=== PATIENT | female | born 2000 | race Two or more races ===

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

== ENCOUNTER 2024-09-05 11:07 | Emergency (ER) | payer MEDICAID ==
[~2024-09-05] VITALS: Ht 160 cm; Wt 100.0 kg
[~2024-09-05 11:07] MED LIST: MIRT-93 PO; OLAN20TA PO
[2024-09-05 12:05] VITALS: BP 117/53; PULSE 91; RESP 22; TEMP 97.4; O2SAT 97
--- NOTE | 2024-09-05 12:40 | ED.PDOC ---
HPI Comments 23 YEAR OLD FEMALE PRESENTS TO THE ED WITH CHIEF COMPLAINT OF LACERATION. PATIENT REPORTS THAT SHE HAD BEEN CARRYING A WOODEN CUTTING BOARD AT HOME WHEN SHE ACCIDENTALLY DROPPED IT ONTO HER LEFT GREAT TOE THIS MORNING. PATIENT RELAYS THAT SHE NOW HAS A LACERATION WITH NAIL INJURY TO HER LEFT GREAT TOE, CONTROLLING THE BLEEDING BEFORE COMING TO THE ED. PATIENT DENIES ANY NUMBNESS, WEAKNESS, OR FURTHER INJURY. Chief Complaint: Laceration Time Seen by MD: 12:34 Reviewed Notes: Nurses Notes, Medications, Allergies Allergies: Coded Allergies: NO KNOWN ALLERGIES (Unverified , 08/14/21) Home Meds Active Scripts Acetaminophen (Tylenol Extra Strength Fo) 500 Mg Tab, 1000 MG PO BID, #30 TAB Prov:HANNAH WIGGINS 09/05/24 Cephalexin Monohydrate (Cephalexin) 500 Mg Cap, 1 CAP PO QID, #40 CAP Prov:HANNAH WIGGINS 09/05/24 Mirtazapine (Remeron) 15 Mg Tab, 15 MG PO DAILY for 10 Days, #10 TAB Prov:JAYLA ESTRADA MD 08/17/21 Olanzapine (Zyprexa) 20 Mg Tab, 2.5 MG PO DAILY for 10 Days, #10 TAB Prov:JAYLA ESTRADA MD 08/17/21 Information Source: Patient Mode of Arrival: EMS Severity: Moderate Severity of Laceration: Controlled Bleeding Complexity: Intermediate Timing: Hours Prehospital treatment: None Laceration Location: Digit #1 (LT GREAT TOE) Mechanism: Wood Last Tetanus: UTD Laceration Length (cm): 4 Skin Type: Linear Depth of Injury: SQ, Nail Tendon Injury: 0% Capillary Refill: < 3 seconds Tender: Moderate Discharge: Serosanguinous Erythema: Localized to Wound Edges Associated Signs and Symptoms: None Past Medical History PAST MEDICAL HISTORY: Anxiety, Depression Surgical History: Denies all surgeries SOFTWARE DESIGN ENGINEER History: No Pertinent SOFTWARE DESIGN ENGINEER History Family History Family History: Unknown Social History Smoker: Non-Smoker Alcohol: Denies ETOH Use Drugs: Denies Drug Use Lives In: Home Constitutional: denies: chills, diaphoresis, fatigue, fever, malaise, sweats, weakness, others EENTM: denies: blurred vision, double vision, ear bleeding, ear discharge, ear drainage, ear pain, ear ringing, eye pain, eye redness, hearing loss, mouth pain, mouth swelling, nasal discharge, nose bleeding, nose congestion, nose pain, photophobia, tearing, throat pain, throat swelling, voice changes, others Respiratory: denies: cough, hemoptysis, orthopnea, SOB at rest, shortness of breath, SOB with excertion, stridor, wheezing, others Cardiovascular: denies: chest pain, dizzy spells, diaphoresis, Dyspnea on exertion, edema, irregular heart beat, left arm pain, lightheadedness, palpitations, PND, syncope, others Gastrointestinal: denies: abdomen distended, abdominal pain, blood streaked bowels, constipated, diarrhea, dysphagia, difficulty swallowing, hematemesis, melena, nausea, poor appetite, poor fluid intake, rectal bleeding, rectal pain, vomiting, others Genitourinary: reports: ; denies: abnormal vagina bleeding, burning, dyspareunia, dysuria, flank pain, frequency, hematuria, incontinence, pain, vagina discharge, urgency, others Neurological: denies: dizziness, fainting, headache, left sided numbness, left sided weakness, numbness, paresthesia, pre-existing deficit, right sided numbness, right sided weakness, seizure, speech problems, tingling, tremors, weakness, others Musculoskeletal: reports: joint pain; denies: back pain, gout, joint swelling, muscle pain, muscle stiffness, neck pain, others Integumetry: reports: laceration (TO LT GREAT TOE WITH NAIL INJURY); denies: bruises, change in color, change in hair/nails, dryness, lesions, lumps, rash, wounds, others Allergic/Immunocompromised: denies: Difficulty Healing, Frequent Infections, Hives, Itching, others Hematologic/Lymphatic: denies: anemia, blood clots, easy bleeding, easy bruising, swollen glands, others Endocrine: denies: excessive hunger, excessive sweating, excessive thirst, excessive urination, flushing, intolerance to cold, intolerance to heat, unexplained weight gain, unexplained weight loss, others Psychiatric: denies: anxiety, bipolar disorder, depression, hopeless, panic disorder, schizophrenia, sleepless, suicidal, others All Other Systems: Reviewed and Negative Physical Exam General Appearance: No Apparent Distress, Obese HEENT: Normal ENT Inspection, PERRL/EOMI Neck: Full Range of Motion, Non-Tender, Normal, Normal Inspection Respiratory: Chest Non-Tender, Lungs Clear, No Accessory Muscle Use, No Respiratory Distress, Normal Breath Sounds Cardiovascular: No Edema, No JVD, No Murmur, No Gallop, Normal Peripheral Pulses, Regular Rate/Rhythm Breast Exam: Deferred Gastrointestinal: No Organomegaly, Non Tender, No Pulsatile Mass, Normal Bowel Sounds, Soft Genitalia: Deferred Pelvic: Deferred Rectal: Deferred Extremities: No calf tenderness, Normal capillary refill, Normal range of motion, No pedal edema, Tender (BONY TENDERNESS WITH LACERATION ON LEFT GREAT TOE, NO DEFORMITY. ) Musculoskeletal : Apperance: Normal Neurologic: Alert, fruit receiver II-XII nml as Tested, No Motor Deficits, Normal Affect, Normal Mood, No Sensory Deficits Cerebellar Function: Normal Reflexes: Normal Skin: Dry, Lacerations (4CM LACERATION ON LEFT GREAT TOE, NO BLEEDING AND FB, NEUROVASCULAR INTACT. ), Normal Color, Warm Peripheral Pulses: 2+ carotid (R), 2+ carotid (L), 2+ dorsalis pedis (R), 2+ dorsalis pedis (L) Lymphatic: No Adenopathy Was a procedure done? Was a procedure done?: Yes Sedation Sedation?: No Laceration Repair : Location LT GREAT TOE Length 3 CM Anesthetic: Lidocaine, Without epi Laceration Repair Prep: Saline Laceration Repair Wound Comple: subcut tissue repair (WITH HALF NAIL INJURY) Laceration Repair: Number of sutures (6, 4-0 ETHILON SUTURES), SQ, Size (3- 0), Simple, Bacitracin, Gauze Informed consent obtained: No Risks, benefits, and alternati: Yes Images 1 - Differential diagnosis Generic Laceration: Fracture, Abrasion/Contusion, Laceration X-Ray, Labs, Meds, VS Vital Signs Date Time Temp Pulse Resp B/P (MAP) Pulse Ox O2 Delivery O2 Flow Rate FiO2 09/05/24 12:05 97.4 91 22 117/53 (74) 97 97.4 09/05/24 12:05 91 22 97 Room Air 09/05/24 11:30 98.0 95 24 118/74 (89) 95 98.0 Current Medications Medications (Trade) Dose Ordered Sig/Jose E Route Start Time Stop Time Status Last Admin Ceftriaxone Sodium (Rocephin) 1,000 mg ONCE ONCE IM 09/05/24 13:00 09/05/24 13:01 DC 09/05/24 13:02 Acetaminophen (Tylenol Tablet Or Capsule) 1,000 mg ONCE ONCE PO 09/05/24 13:00 09/05/24 13:01 DC 09/05/24 13:02 LEFT FOOT XR: FINDINGS/IMPRESSION: Nondisplaced fracture involving the distal phalanx of the 1st digit. X-Ray, Labs, Meds, VS Comment EXTERNAL MEDICAL RECORDS REVIEWED: [NONE] INDEPENDENT HISTORIANS: [NONE] SOCIAL DETERMINANTS OF HEALTH: [NONE] LABS ORDERED: NONE REVIEWED AND INTERPRETED RESULTS: LEFT FOOT XR IMAGING ORDERED: LEFT FOOT XR TREATMENTS ORDERED: LACERATION REPAIR AND WRAPPING OF LEFT GREAT TOE, ROCEPHIN 1G IM, TYLENOL 1G PO PROCEDURES PERFORMED: NONE CRITICAL CARE TIME: NONE I HAVE DISCUSSED THE PATIENT WITH THE ATTENDING PHYSICIAN DR. KAMARA] AND HE AGREES WITH THE PATIENT'S PLAN OF CARE AND DISPOSITION. BASED ON HISTORY OF PRESENT ILLNESS, AND PHYSICAL EXAM, PATIENT WILL BE DISCHARGED HOME. DISCUSSED PLAN FOR DISCHARGE HOME WITH RX KEFLEX AND TYLENOL. MEDICATION WARNINGS GIVEN. SHARED DECISION MAKING: DISCUSSED WITH PATIENT THAT THEIR WORKUP WAS NORMAL. PATIENT INSTRUCTED TO FOLLOW UP WITH PRIMARY CARE PROVIDER IN 1-2 DAYS FOR RE- EVALUATION OF SYMPTOMS. PATIENT VERBALIZES UNDERSTANDING TO RETURN TO ED FOR NEW OR WORSENING SYMPTOMS OR IF FOLLOW UP WITH PCP CANNOT BE OBTAINED. PATIENT FEELS COMFORTABLE GOING HOME AT THIS TIME. ALL QUESTIONS ADDRESSED AT TIME OF DISCHARGE. Time of 1ST Reevaluation: : Reevaluation 1ST: Improved Patient Education/Counseling: Diagnosis, Treatment, Need For Follow Up Family Education/Counseling: Diagnosis, Treatment, No Family Present Medical Screening: No EMC Exist At This Time Departure 1 Departure Time of Disposition: 13:26 Impression: Primary Impression: Laceration of left great toe with damage to nail Qualified Codes: S91.212A - Laceration without foreign body of left great toe with damage to nail, initial encounter Additional Impression: Nondisplaced fracture of phalanx of left great toe Qualified Codes: S92.425A - Nondisplaced fracture of distal phalanx of left great toe, initial encounter for closed fracture Disposition: HOME / SELF CARE / HOMELESS Condition: Stable Additional Instructions: FOLLOW-UP WITH PCP IN 1 TO 2 DAYS. TAKE MEDICATIONS PRESCRIBED. RETURN TO ED FOR ANY NEW OR WORSENING SYMPTOMS. e-Prescriptions Acetaminophen (Tylenol Extra Strength Fo) 500 Mg Tab 1000 MG PO BID, #30 TAB Prov: HANNAH WIGGINS 09/05/24 Cephalexin Monohydrate (Cephalexin) 500 Mg Cap 1 CAP PO QID, #40 CAP Prov: HANNAH WIGGINS 09/05/24 Discharged With: Self Critical Care Note Critical Care Time?: No Stability Stability form required: No Heart Score Heart Score: Heart Score Response (Comments) Value History N/A 0 EKG N/A 0 Age N/A 0 Risk Factors N/A 0 Troponin N/A 0 Total 0 I personally scribed for HANNAH WIGGINS ([email or web address]) on 09/05/24 at 12:40. Electronically submitted by Joselo Herrera ([email or web address]). I personally scribed for HANNAH WIGGINS ([email or web address]) on 09/05/24 at 12:48. Electronically submitted by Joselo Herrera ([email or web address]). I personally scribed for HANNAH WIGGINS ([email or web address]) on 09/05/24 at 12:49. Electronically submitted by Joselo Herrera ([email or web address]). I personally scribed for HANNAH WIGGINS ([email or web address]) on 09/05/24 at 13:20. Electronically submitted by Joselo Herrera ([email or web address]). HANNAH WIGGINS Sep 05, 2024 12:40
[2024-09-05] MEDS: LIDOCAINE 1% HCL (LOCAL ANESTH.) INJ 20ML MDV ONE (13:02)
[2024-09-05] MEDS: ACETAMINOPHEN 500 MG TAB or CAP PO ONE (13:02)
[2024-09-05] MEDS: cefTRIAXone SOD 1,000 MG VL IM ONE (13:02)
--- NOTE | 2024-09-05 13:11 | DVH ---
EXAM: XY L FOOT 2 VIEW XRAY CLINICAL INDICATION: LEFT GREAT TOE LACERATION TECHNIQUE: XY L FOOT 2 VIEW XRAY Comparison: None FINDINGS/IMPRESSION: Nondisplaced fracture involving the distal phalanx of the 1st digit.
[2024-09-05] MEDS ORDERED: CEPH500C PO (13:12)
[2024-09-05] MEDS ORDERED: ACET-1304 PO (13:12)
== END 2024-09-05 13:17 | disposition home or self-care (01) ==
LOC: ER 11:07 → EDBD 11:07 → ER 13:17
DX: S92.425A Nondisplaced fracture of distal phalanx of left great toe, initial encounter for closed fracture (principal); S91.212A Laceration without foreign body of left great toe with damage to nail, initial encounter; F41.9 Anxiety disorder, unspecified; F32.9 Major depressive disorder, single episode, unspecified; Z79.899 Other long term (current) drug therapy; W04.XXXA Fall while being carried or supported by other persons, initial encounter; Y93.89 Activity, other specified; Y92.89 Other specified places as the place of occurrence of the external cause; Y99.8 Other external cause status
CPT/HCPCS: 12002; 73620; 96372; 99283; J0696; J2003

== ENCOUNTER 2024-09-05 11:19 | Emergency (ER) | payer MEDICAID ==
[~2024-09-05] VITALS: Ht 160 cm; Wt 100.0 kg
[2024-09-05 11:44] VITALS: BP 117/53; PULSE 91; RESP 22; TEMP 97.4; O2SAT 97
[2024-09-05] MEDS ORDERED: ACET-1304 PO (13:12)
[2024-09-05] MEDS ORDERED: CEPH500C PO (13:12)
== END 2024-09-05 12:17 | disposition left against medical advice (07) ==
LOC: ER 11:23
DX: S99.922A Unspecified injury of left foot, initial encounter (principal); Z53.21 Procedure and treatment not carried out due to patient leaving prior to being seen by health care provider

== ENCOUNTER 2024-09-17 22:01 | Observation (INO) | payer OTHER ==
[~2024-09-17] VITALS: Ht 160 cm; Wt 98.0 kg
[~2024-09-17 22:01] MED LIST changes: +ACET-1304 PO; +CEPH500C PO
[2024-09-17 22:53] LABS: Urine Bacteria None Seen /hpf (None Seen)
[2024-09-17] MEDS: TERBUTALINE SULFATE 1 MG/ML 1ML VIAL SC SCH (23:00)
[2024-09-17] MEDS: TERBUTALINE SULFATE 1 MG/ML 1ML VIAL SC ONE (23:01)
[2024-09-17] MEDS: LACTATED RINGER'S 1,000 ML IV ONE (23:01)
[2024-09-17 23:12] LABS: Urine Amorphous Crystal FEW /hpf (None Seen); Urine Blood Negative /uL (Negative); Urine Clarity Clear (Clear); Urine Color Light-Yellow (Yellow); Urine Protein, UAD Negative (Negative); Urine Squamous Epithelial Cell FEW /hpf (<5); Urine Urobilinogen Normal (Negative); Urine WBC < 1 /HPF (0-5); Urine pH 6.5 (5.0-9.0)
[2024-09-18] MEDS: NIFEdipine 10 MG CAP PO ONE (00:08)
[2024-09-18] MEDS: LACTATED RINGER'S 1,000 ML IV SCH (00:10)
[2024-09-18] MEDS ORDERED: PREN-96 PO (01:03)
--- NOTE | 2024-09-18 02:51 | DVH ---
Examination: KIDUS CLINICAL INDICATION: CVA. TENDERNESS/BACKPAIN. COMPARISON: None. TECHNIQUE: Transabdominal ultrasound was performed. FINDINGS: Right Kidney: Measures approximately 120 mm in length. Cortical thickness is normal. Mild right-sided hydronephrosis. No stones or masses identified. Cortical echogenicity appears normal. Left Kidney: Measures approximately 126 mm in length. Cortical thickness is normal. No evidence of hy dronephrosis. No stones or masses identified. Cortical echogenicity appears normal. Bladder: Appears distended with smooth wall outline. Wall thickness measures 4.1 mm. Pre-void volume: 190 mL. IMPRESSION: 1. Mild right-sided hydronephrosis. No obvious renal calculus. Probably secondary to distended uri nary bladder. 2. Normal urinary bladder wall thickness. 3. Technically limited study due to patient movement, , and contractions�making detailed evaluation difficult. Electronically Signed 09/18/2024 02:50 Norma Shah
--- NOTE | 2024-09-18 14:30 | DVHDS2 ---
Physician Discharge Progress N Final Diagnosis: back pain,cramping 32 wks Operations or Procedures: Operations or Procedures nst,sono Condition on Discharge: Good Disposition: Home Discharge Instructions: Diet: Regular Activity: No Restrictions, As Tolerated Follow Up/Referral: FOLLOW UP WITH YOUR PRIMARY OB FIRST THING IN THE MORNING. Medications: CONTINUE TAKING ALL CURRENT MEDICATIONS PREVIOUSLY PRESCRIBED BY YOUR OB. START TAKING PROCARDIA 10MG BY MOUTH ONCE EVERY 4HRS. Follow Up Care: Specialist: 1d Discharge Statement: "Patient was advised to return to the ER or call 911 if any headaches, di zziness, shortness of breath, chest pain, abdominal pain, bleeding, fevers, or worsening of medical condition. Patient was counseled about treatment plan, medications, possible side effects, patientverbalized understanding. All questions were answered to the best of my ability. This discharge took greater then 30 minutes in planning, reviewing documentation, counseling the patient, and discussing with other team members." Visit Coding OBGYN Date of Service: Sep 18, 2024 Billing Provider: CRISPIN GALVEZ DO SIGNAL TOWER DIRECTOR Common Visit Codes: 86464-CLYGIXV INP/OBS CARE (HIGH) SIGNAL TOWER DIRECTOR Procedure Codes: 78409-01- NON-STRESS TEST CRISPIN GALVEZ DO Sep 18, 2024 14:30
== END 2024-09-18 03:01 | disposition home or self-care (01) ==
LOC: LDRP 22:01
PROVIDERS: ADMIT Obstetrics & Gynecology; ATTEND Obstetrics & Gynecology
DX: O62.9 Abnormality of forces of labor, unspecified (principal); O99.891 Other specified diseases and conditions complicating pregnancy; M54.9 Dorsalgia, unspecified; O26.893 Other specified pregnancy related conditions, third trimester; R10.9 Unspecified abdominal pain; Z79.899 Other long term (current) drug therapy; Z3A.32 32 weeks gestation of pregnancy
CPT/HCPCS: 59025; 76775; 81001; 94760; 96360; 96361; 96372; G0378; J3105